=== PATIENT | female | born 1990 | race African-American/Black ===

== ENCOUNTER 2018-07-06 11:05 | Emergency (ER) | payer OTHER ==
[~2018-07-06] VITALS: Ht 160 cm; Wt 86.4 kg
[2018-07-06 11:09] VITALS: BP 148/53; Ht 160 cm; Wt 86.4 kg
[2018-07-06 11:29] LABS: BASOPHILS 0.5 % (0-2); EOSINOPHILS 1.1 % (0-7); HEMATOCRIT 39.9 % (36.0-48.0); HEMOGLOBIN 13.8 g/dL (12-16); LYMPHOCYTES 22.4 % (15-50); MCH 31.9 pg (26.0-34.0); MCHC 34.6 g/dL (31.0-37.0); MCV 92.1 fL (80.0-100.0); MEAN PLATELET VOLUME 12.8 fL (7.4-10.4); MONOCYTES 5.1 % (2-11); NEUTROPHILS 70.9 % (40-80); PLATELET COUNT 74 10x3/uL (130-400); RBC 4.33 10x6/uL (4.00-5.40); RDW 15.9 % (11.5-14.5); WBC 3.7 10x3/uL (4.8-10.8)
[2018-07-06 11:42] LABS: HCG URINE NEGATIVE (NEGATIVE)
[2018-07-06 11:43] LABS: ALBUMIN 3.7 g/dL (3.4-5.0); ALKALINE PHOSPHATASE 274 U/L (46-116); ALT (SGPT) 145 U/L (10-68); BILIRUBIN - TOTAL 3.53 mg/dL (0.2-1.3); CALC OSMOLALITY 269 mosm/kg (275-300); CALCIUM 8.8 mg/dL (8.5-10.1); CARBON DIOXIDE 25.8 mmol/L (21.0-32.0); CHLORIDE - SERUM 97 mmol/L (98-107); CREATININE - SERUM 0.5 mg/dL (0.6-1.3); GLUCOSE 100 mg/dL (74-106); MAGNESIUM - SERUM 1.4 mg/dL (1.8-2.4); POTASSIUM - SERUM 3.7 mmol/L (3.5-5.1); PROTEIN - SERUM 8.5 g/dL (6.4-8.2); SODIUM 136 mmol/L (136-145); UREA NITROGEN 6 mg/dL (7-18); eGFR NON AFRICAN AMERICAN > 90 mL/min (90-120)
[2018-07-06 11:48] LABS: UDS - AMPHET NEGATIVE QUAL (NEGATIVE); UDS - BARB NEGATIVE QUAL (NEGATIVE); UDS - BENZO NEGATIVE QUAL (NEGATIVE); UDS - COCAINE NEGATIVE QUAL (NEGATIVE); UDS - OPIATE NEGATIVE QUAL (NEGATIVE); UDS - PCP NEGATIVE QUAL (NEGATIVE); UDS - THC POSITIVE QUAL (NEGATIVE)
[2018-07-06 11:53] LABS: APPEARANCE HAZY (CLEAR); BILIRUBIN NEGATIVE (NEGATIVE); COLOR DK YELLOW (YELLOW); GLUCOSE NEGATIVE (NEGATIVE); KETONE NEGATIVE (NEGATIVE); NITRITE POSITIVE (NEGATIVE); PROTEIN NEGATIVE (NEGATIVE); SPECIFIC GRAVITY 1.005 (1.005-1.020)
[2018-07-06 11:54] LABS: RED CELLS - URINE OCC /hpf (0-5); WHITE CELLS - URINE OCC /hpf (0-5)
[2018-07-06 11:55] LABS: BACTERIA MANY /hpf (NONE SEEN); MUCUS <1+ /lpf (NONE SEEN)
[2018-07-06 12:12] LABS: PLATELET ESTIMATE DECREASED
== END 2018-07-06 13:50 | disposition left against medical advice (07) ==
LOC: D.ER 11:05
PROVIDERS: Emergency Medicine
DX: F10.239 Alcohol dependence with withdrawal, unspecified (principal)

== ENCOUNTER 2020-02-20 14:31 | Inpatient (IN) | payer MEDICAID ==
[~2020-02-20] VITALS: Ht 160 cm; Wt 107.4 kg
[2020-02-20 15:00] VITALS: BP 127/59
[2020-02-20 15:26] LABS: UDS - AMPHET NEGATIVE QUAL (NEGATIVE); UDS - BARB NEGATIVE QUAL (NEGATIVE); UDS - BENZO NEGATIVE QUAL (NEGATIVE); UDS - COCAINE NEGATIVE QUAL (NEGATIVE); UDS - OPIATE NEGATIVE QUAL (NEGATIVE); UDS - PCP NEGATIVE QUAL (NEGATIVE); UDS - THC NEGATIVE QUAL (NEGATIVE)
[2020-02-20 15:30] LABS: BILIRUBIN 1+ (NEGATIVE); GLUCOSE NEGATIVE (NEGATIVE); KETONE NEGATIVE (NEGATIVE); NITRITE NEGATIVE (NEGATIVE); UROBILINOGEN NORMAL (NORMAL)
[2020-02-20 15:31] LABS: RED CELLS - URINE OCC /hpf (0-5); WHITE CELLS - URINE 0-5 /hpf (NEGATIVE)
[2020-02-20 15:32] LABS: BACTERIA MODERATE /hpf (NEGATIVE); EPITHELIAL CELLS 0-5 /hpf (0-5)
[2020-02-20 15:37] LABS: HEMATOCRIT 37.5 % (36.0-48.0); HEMOGLOBIN 12.5 g/dL (12-16); LYMPHOCYTES 13.9 % (15-50); MCH 34.6 pg (26.0-34.0); MCHC 33.3 g/dL (31.0-37.0); MCV 103.9 fL (80.0-100.0); MEAN PLATELET VOLUME 11.6 fL (7.4-10.4); NEUTROPHILS 77.7 % (40-80); RBC 3.61 10x6/uL (4.00-5.40); RDW 19.4 % (11.5-14.5); WBC 5.3 10x3/uL (4.8-10.8)
[2020-02-20 15:40] LABS: HCG SERUM NEGATIVE (NEGATIVE)
[2020-02-20 15:41] LABS: CALC OSMOLALITY 265 mosm/kg (275-300); CALCIUM 7.2 mg/dL (8.5-10.1); CARBON DIOXIDE 26.7 mmol/L (21.0-32.0); CHLORIDE - SERUM 96 mmol/L (98-107); CREATININE - SERUM 0.6 mg/dL (0.6-1.3); GLUCOSE 122 mg/dL (74-106); SODIUM 134 mmol/L (136-145); UREA NITROGEN 4 mg/dL (7-18); eGFR NON AFRICAN AMERICAN > 90 mL/min (90-120)
[2020-02-20 15:54] LABS: ALBUMIN 2.5 g/dL (3.4-5.0); ALKALINE PHOSPHATASE 440 U/L (30-120); ALT (SGPT) 66 U/L (10-68); AMYLASE - SERUM 47 U/L (25-115); BILIRUBIN - TOTAL 12.67 mg/dL (0.2-1.3); LIPASE 294 U/L (73-393); MAGNESIUM - SERUM 1.6 mg/dL (1.8-2.4); PROTEIN - SERUM 7.4 g/dL (6.4-8.2)
[2020-02-20 16:00] LABS: PLATELET COUNT 51 10x3/uL (130-400)
[2020-02-20 16:11] LABS: INR 1.28 (0.85-1.17); PLATELET ESTIMATE DECREASED; PROTIME 15.9 SECONDS (11.6-15.0)
[2020-02-20 17:00] VITALS: BP 127/74
[2020-02-20 18:00] VITALS: BP 113/51
[2020-02-20 20:35] VITALS: BP 117/63
[2020-02-21 06:55] LABS: HEMATOCRIT 33.8 % (36.0-48.0); HEMOGLOBIN 11.4 g/dL (12-16); LYMPHOCYTES 18.8 % (15-50); MCH 35.5 pg (26.0-34.0); MCHC 33.7 g/dL (31.0-37.0); MCV 105.3 fL (80.0-100.0); MEAN PLATELET VOLUME 11.5 fL (7.4-10.4); NEUTROPHILS 76.8 % (40-80); RBC 3.21 10x6/uL (4.00-5.40); RDW 19.3 % (11.5-14.5)
[2020-02-21 07:09] LABS: WBC 3.1 10x3/uL (4.8-10.8)
[2020-02-21 07:10] LABS: PLATELET COUNT 38 10x3/uL (130-400)
[2020-02-21 07:12] LABS: ALBUMIN 2.2 g/dL (3.4-5.0); ALKALINE PHOSPHATASE 403 U/L (30-120); ALT (SGPT) 58 U/L (10-68); BILIRUBIN - TOTAL 11.38 mg/dL (0.2-1.3); CALC OSMOLALITY 270 mosm/kg (275-300); CALCIUM 7.1 mg/dL (8.5-10.1); CHLORIDE - SERUM 100 mmol/L (98-107); CHOL - HDL RATIO 23.4 ratio (2.3-4.1); CHOLESTEROL, TOTAL 327 mg/dL (0-200); GLUCOSE 105 mg/dL (74-106); HDL CHOLESTEROL 14 mg/dL (32-96); LDL CHOLESTEROL 260 mg/dL (0-100); LDL-HDL RATIO 18.6 ratio (1.5-3.5); LIPASE 311 U/L (73-393); MAGNESIUM - SERUM 1.7 mg/dL (1.8-2.4); POTASSIUM - SERUM 3.1 mmol/L (3.5-5.1); PROTEIN - SERUM 6.5 g/dL (6.4-8.2); SODIUM 137 mmol/L (136-145); TRIGLYCERIDE 269 mg/dL (30-200); UREA NITROGEN 4 mg/dL (7-18)
[2020-02-21 07:15] LABS: CREATININE - SERUM 0.4 mg/dL (0.6-1.3); eGFR NON AFRICAN AMERICAN > 90 mL/min (90-120)
--- NOTE | 2020-02-21 07:22 | NUR ---
AM ROUNDING DONE WITH PATIENT ON CELL PHONE LAYING ON BACK. ON HEART MONITOR SHOWING SR, HR 108. ROOM AIR. RIGHT HAND PIV SALINE LOCK. LAB CALLED WITH PLT OF 38. ON EP K+ 3.1, MAG 1.7. WILL COVER WITH PROTOCOL. C/O BACK PAIN, STATES THAT SHE FELL AT [place]. I ASKED THAT WHEN SHE SEES THE ODOCTOR TO PLEASE LET HIM KNOW OF THIS SHE DID NOT IN THE ED. STATES TO UNDERSTANDING.
--- NOTE | 2020-02-21 08:06 | NUR ---
ORAL POTASSIUM AND MAG GIVEN PER PROTOCOL.
[2020-02-21 09:00] VITALS: BP 133/77
[2020-02-21 09:12] LABS: HEPATITIS C ANTIBODY 0.2 S/CO RAT (0.0-0.9)
[2020-02-21 11:00] VITALS: BP 124/66
--- NOTE | 2020-02-21 11:10 | NUR ---
TEMP IS 100.1 ORAL. PAGE INTO DIN[facility]A JOYA APN FOR TYLENOL ORDER. AWAITING CALL BACK.
--- NOTE | 2020-02-21 11:28 | NUR ---
DINORA JOYA APN TO CALL BACK WITH NEW ORDERS.
--- NOTE | 2020-02-21 12:26 | NUR ---
POTASSIUM RE-DRAW RESULT IS 3.0. WILL COVER WITH ADDIONTIAL POTASSIUM.
[2020-02-21 15:00] VITALS: BP 131/65
--- NOTE | 2020-02-21 17:05 | NUR ---
POTASSIUM IS 3.5. COVERED PER PROTOCOL.
--- NOTE | 2020-02-21 19:57 | NUR ---
REPORT RECEIVED AN ROUNDING COMPLETE. PATIENT LAYING IN BED ON STOMACH SNORING. NO DISTRESS NOTED. PATIENT WOKE EASILY AND STATED THAT SHE IS EXTRA TIRED AND WOULD LIKE TO SLEEP PLEASE. NO DISTRESS NOTED. RIGHT HAND PIV THAT IS SALINE LOCKED. CALL LIGHT WIHTIN REACH AND BED IN LOWEST LOCKED POSITION.
[2020-02-21 20:00] VITALS: BP 140/66
[2020-02-22] VITALS: BP 125/60
[2020-02-22 04:00] VITALS: BP 141/65
[2020-02-22 05:32] LABS: ALBUMIN 2.1 g/dL (3.4-5.0); ALKALINE PHOSPHATASE 395 U/L (30-120); ALT (SGPT) 56 U/L (10-68); BILIRUBIN - TOTAL 14.31 mg/dL (0.2-1.3); CALC OSMOLALITY 266 mosm/kg (275-300); CALCIUM 7.5 mg/dL (8.5-10.1); CARBON DIOXIDE 26.9 mmol/L (21.0-32.0); CHLORIDE - SERUM 100 mmol/L (98-107); CREATININE - SERUM 0.5 mg/dL (0.6-1.3); GLUCOSE 101 mg/dL (74-106); MAGNESIUM - SERUM 1.5 mg/dL (1.8-2.4); POTASSIUM - SERUM 3.4 mmol/L (3.5-5.1); PROTEIN - SERUM 6.4 g/dL (6.4-8.2); SODIUM 135 mmol/L (136-145); UREA NITROGEN 3 mg/dL (7-18); eGFR NON AFRICAN AMERICAN > 90 mL/min (90-120)
[2020-02-22 05:39] LABS: HEMATOCRIT 34.5 % (36.0-48.0); HEMOGLOBIN 11.4 g/dL (12-16); LYMPHOCYTES 17.9 % (15-50); MCH 35.3 pg (26.0-34.0); MCV 106.8 fL (80.0-100.0); NEUTROPHILS 75.1 % (40-80); RBC 3.23 10x6/uL (4.00-5.40); RDW 19.3 % (11.5-14.5)
[2020-02-22 05:44] LABS: PLATELET COUNT 33 10x3/uL (130-400)
[2020-02-22 06:20] LABS: PHOSPHOROUS 1.5 mg/dL (2.5-4.9)
[2020-02-22 08:30] VITALS: BP 126/63
--- NOTE | 2020-02-22 09:59 | NUR ---
PT STATES SHE SLIIPED DOWN [facility] AT [facility]RIENDS HOUSE AND IS WANTING BACK XR. CALLED AND STATED THIS TO BALBINA BENTON AND HE STATES HE WILL LOOK AT CHART AND THAT HE MAY NOT ORDER FILM BUT WILL MOST LIKELY GET SOMETHING STRONGER FOR PAIN OTHER THAN TYLENOL. I VEBRALIZED UNDERSTANDING.
[2020-02-22 10:19] VITALS: Ht 160 cm; Wt 107.4 kg
[2020-02-22 11:08] LABS: PLATELET ESTIMATE DECREASED
[2020-02-22 12:00] VITALS: BP 143/76
--- NOTE | 2020-02-22 13:14 | NUR ---
PT STATES SHE FELL IN THE SHOWER AND HURT HER BACK MORE AND HIT HER HEAD. STATED THIS TO DR. SOUTH AND HE STATES TO ORDER A BACK XR CERVICAL THORACIC AND LUMBAR SPINE AND A CT HEAD WITHOUT CONTRAST. I VERBALIZED UNDERSTANDING.
--- NOTE | 2020-02-22 13:23 | NUR ---
PT STATES SHE FELL IN THE SHOWER AND HURT HER BACK MORE AND HIT HER HEAD. THIS WAS AN UNWITNESSED FALL. NON SKID SOCKS PLACED ON PT. BED ALARM TURNED ON. AND STATED TO PT SHE HAS TO USE CALL LIGHT IF SHE NEEDS TO GET UP FROM NOW ON AND WE WILL HELP HER TO THE BATHROOM. PT VERBALIZED UNDERSTANDING. STATED THIS TO DR. SOUTH AND HE STATES TO ORDER A BACK XR CERVICAL THORACIC AND LUMBAR SPINE AND A CT HEAD WITHOUT CONTRAST. I VERBALIZED UNDERSTANDING.
--- NOTE | 2020-02-22 15:25 | NUR ---
PT LYING IN BED. EYES CLOSED. CHEST RISING AND FALLING. BED LOW. CL IN REACH. WILL CONTINUE TO MONITOR.
--- NOTE | 2020-02-22 15:50 | NUR ---
SPOKE WITH DINORA BENTON AND SHE STATES SHE LOOKED OVER XR AND PT DID NOT FX HER BACK SHE JUST HAS DEGENERATIVE CHANGES FROM ETOH. SHE ALSO STATES CT OF THE HEAD WAS CLEAR. I VERBALIZED UNDERSTANDING. I ASKED IF PT WILL NEED CALCIUM AND SHE STATES THAT IS SOMETHING HER PCP WILL DECIDE ON WHEN SHE FOLLOWS UP WITH HIM. I VERBALIZED UNDERSTANDING.
--- NOTE | 2020-02-22 18:22 | NUR ---
I have reviewed this patient and I concur with the Shift Assessment completed by the Licensed Practical Nurse today this shift.
--- NOTE | 2020-02-22 19:11 | NUR ---
RESTING WITH EYES CLOSED BED LOW AND LOCKED SRX2 AND BED ALARM IS IN PLACECALL LIGHT IS WITH IN REACH
[2020-02-22 20:00] VITALS: BP 111/49
--- NOTE | 2020-02-23 03:05 | NUR ---
I have reviewed this patient and I concur with the Shift Assessment completed by the Licensed Practical Nurse today this shift.
[2020-02-23 04:00] VITALS: BP 141/78
[2020-02-23 04:55] LABS: HEMATOCRIT 33.3 % (36.0-48.0); HEMOGLOBIN 11.1 g/dL (12-16); LYMPHOCYTES 17.8 % (15-50); MCH 35.9 pg (26.0-34.0); MCHC 33.3 g/dL (31.0-37.0); MCV 107.8 fL (80.0-100.0); MEAN PLATELET VOLUME 12.2 fL (7.4-10.4); NEUTROPHILS 72.6 % (40-80); RBC 3.09 10x6/uL (4.00-5.40); WBC 3.3 10x3/uL (4.8-10.8)
[2020-02-23 05:02] LABS: PLATELET COUNT 41 10x3/uL (130-400)
[2020-02-23 05:28] LABS: ALKALINE PHOSPHATASE 361 U/L (30-120); ALT (SGPT) 46 U/L (10-68); BILIRUBIN - TOTAL 16.81 mg/dL (0.2-1.3); CALCIUM 7.5 mg/dL (8.5-10.1); CARBON DIOXIDE 24.8 mmol/L (21.0-32.0); CHLORIDE - SERUM 100 mmol/L (98-107); CREATININE - SERUM 0.4 mg/dL (0.6-1.3); GLUCOSE 85 mg/dL (74-106); MAGNESIUM - SERUM 1.5 mg/dL (1.8-2.4); POTASSIUM - SERUM 3.8 mmol/L (3.5-5.1); SODIUM 134 mmol/L (136-145); eGFR NON AFRICAN AMERICAN > 90 mL/min (90-120)
[2020-02-23 05:30] LABS: CALC OSMOLALITY 264 mosm/kg (275-300); UREA NITROGEN 6 mg/dL (7-18)
[2020-02-23 08:00] VITALS: BP 125/75
--- NOTE | 2020-02-23 12:22 | MORECARE ---
CASE MANAGEMENT DISCHARGE SUMMARY PATIENT: STEFANO XIONG UNIT: [id number] ADM DATE: 02/20/20 AGE: 29 : 88 SEX: F ROOM/BED: D.2107 AUTHOR: THOMPSON,DOC PHYSICIAN: REFERRING PHYSICIAN: SANTI SOUTH DO DATE OF SERVICE: 02/23/20 Discharge Plan Patient Name: STEFANO XIONG Facility: [facility]:[place] : 1990 Planned Disposition: Home Anticipated Discharge Date: 02/23/20 Discharge Date: Expected LOS: 3 Initial Reviewer: [email or web address] Initial Review Date: 02/20/2020 Generated: 02/23/20 1:21 pm DCP- Discharge Planning Updated by [email or web address]: Lawanda Shea on 02/22/20 2:[address] 98.4, 116, 20, 140/72. PLT 51-33, Alcohol 509, Chief Complaint Narrative worried about alcohol withdrawal, trying to stop drinking Objective Data History of Present Illness: PCP: none 29yo wf presented to the ER with concerns that she is going to stop drinking and worried she will have withdrawals. Is a heavy drinker, has drank on an almost daily basis for the past 15 years. Has had seizures in the past when she has quit drinking for any length of time. Last time she drank was earlier today. ETOH level of 509. States she would sincerely like to quit drinking now. Would like assistance with placement at an addicition treatment facility. Platelet count of 51. INR 1.28. AST 482. Tbil 12. Pt obviously still intoxicated at present. count of 51. INR States she has been told in the past that she had cirrhosis. Noted icterus and facial jaundice. Liver US pending. Admit Inpatient: Protonix 40 mg IV QD, Zofran 4 mg IV Q4HP (rec'd X4), Ativan 1 mg IV Q8HP, K-Phos 2 pkt PRN, K-DUR 40 meq PRN (X4), Banana Bag X1 IV 1,015 cc @125 ccH, Mag OX 400 mg oral PRN (X4), Librium 25 mg oral tid (X6). US ABD: IMPRESSION: 1. Enlarged liver with increased echogenicity, coarsened echotexture, and lobular contours. Findings are suggestive of fibrofatty infiltration and possible cirrhosis. 2. Hepatofugal portal venous flow in keeping with portal hypertension. No ascites seen. 3. Gallbladder sludge and stones without wall thickening 4. Nonvisualization of the common bile duct. DCPIA - Discharge Planning Initial Assessment Updated by [email or web address]: Lawanda Shea on 02/23/20 12:17 pm * Is the patient Alert and Oriented? Yes * How many steps to enter\exit or inside your home? * PCP Dr. Jacobs, NLR * Pharmacy [facility] * Preadmission Environment Home with Family * ADLs Independent * Other Equipment NA * List name and contact numbers for known caregivers / representatives who currently or will assist patient after discharge: Paul Ramirez () [phone] * Community resources currently utilized None * Please name any agencies selected above. Information provided for: [facility] * Additional services required to return to the preadmission environment? Yes * Can the patient safely return to the preadmission environment? No * Has this patient been hospitalized within the prior 30 days at any hospital? No Patient Name: STEFANO XIONG Page [id number] at 1222 All edits/amendments must be made on the electronic document DICTATION DATE: 02/23/20 1221 SHIPPING AND RECEIVING WEIGHER: PARVIN 02/23/20 1221 RPT#: [id number] DC DATE: STATUS: ADM IN [facility] [address] [place] [address] END OF REPORT
[2020-02-23] MEDS ORDERED: ATIVAN1 MG PO (12:40)
--- NOTE | 2020-02-23 13:25 | NUR ---
MALCOLM RN GAVE PT DISCHARGE INSTRUCTIONS AND ATIVAN SCRIPT AND EXPLAINED TO PT DISCHARGE INSTRUCTIONS AND DC'D TELEMETRY AND RIGHT HAND IV WITH CATH INTACT. PT SIGNED CHART COPY AND CALLED RIDE.
--- NOTE | 2020-02-23 13:30 | MORECARE ---
CASE MANAGEMENT DISCHARGE SUMMARY PATIENT: STEFANO XIONG UNIT: [id number] ADM DATE: 02/20/20 AGE: 29 : 88 SEX: F ROOM/BED: D.2107 AUTHOR: THOMPSON,DOC PHYSICIAN: REFERRING PHYSICIAN: SANTI SOUTH DO DATE OF SERVICE: 02/23/20 Discharge Plan Patient Name: STEFANO XIONG Facility: [facility]:[place] : 1990 Planned Disposition: Home Anticipated Discharge Date: 02/23/20 Discharge Date: Expected LOS: 3 Initial Reviewer: [email or web address] Initial Review Date: 02/20/2020 Generated: 02/23/20 2:29 pm DCP- Discharge Planning Updated by [email or web address]: Lawanda Shea on 02/22/20 2:[address] 98.4, 116, 20, 140/72. PLT 51-33, Alcohol 509, Chief Complaint Narrative worried about alcohol withdrawal, trying to stop drinking Objective Data History of Present Illness: PCP: none 29yo wf presented to the ER with concerns that she is going to stop drinking and worried she will have withdrawals. Is a heavy drinker, has drank on an almost daily basis for the past 15 years. Has had seizures in the past when she has quit drinking for any length of time. Last time she drank was earlier today. ETOH level of 509. States she would sincerely like to quit drinking now. Would like assistance with placement at an addicition treatment facility. Platelet count of 51. INR 1.28. AST 482. Tbil 12. Pt obviously still intoxicated at present. count of 51. INR States she has been told in the past that she had cirrhosis. Noted icterus and facial jaundice. Liver US pending. Admit Inpatient: Protonix 40 mg IV QD, Zofran 4 mg IV Q4HP (rec'd X4), Ativan 1 mg IV Q8HP, K-Phos 2 pkt PRN, K-DUR 40 meq PRN (X4), Banana Bag X1 IV 1,015 cc @125 ccH, Mag OX 400 mg oral PRN (X4), Librium 25 mg oral tid (X6). US ABD: IMPRESSION: 1. Enlarged liver with increased echogenicity, coarsened echotexture, and lobular contours. Findings are suggestive of fibrofatty infiltration and possible cirrhosis. 2. Hepatofugal portal venous flow in keeping with portal hypertension. No ascites seen. 3. Gallbladder sludge and stones without wall thickening 4. Nonvisualization of the common bile duct. DCPIA - Discharge Planning Initial Assessment Updated by [id number]: Lawanda Shea on 02/23/20 12:17 pm * Is the patient Alert and Oriented? Yes * How many steps to enter\exit or inside your home? * PCP Dr. Jacobs, NLR * Pharmacy [facility] * Preadmission Environment Home with Family * ADLs Independent * Other Equipment NA * List name and contact numbers for known caregivers / representatives who currently or will assist patient after discharge: Paul Ramirez () [phone] * Community resources currently utilized None * Please name any agencies selected above. Information provided for: [facility] * Additional services required to return to the preadmission environment? Yes * Can the patient safely return to the preadmission environment? No * Has this patient been hospitalized within the prior 30 days at any hospital? No Last DP export: 02/23/20 11:22 a Patient Name: STEFANO XIONG Page 90702 at 1330 All edits/amendments must be made on the electronic document DICTATION DATE: 02/23/201328 INDUSTRIAL AUTOMATION SPECIALIST: PARVIN 02/23/20 1329 RPT#: [id number] DC DATE: STATUS: ADM IN [facility] [address] [place] [address] END OF REPORT
--- NOTE | 2020-02-23 13:47 | NUR ---
PT TAKEN OUT VIA WC BY CAN AND LEFT WITH ALL PERSONAL BELONGINGS WITH FRIEND IN THEIR PERSONAL VEHICLE.
--- NOTE | 2020-02-23 16:32 | MORECARE ---
CASE MANAGEMENT DISCHARGE SUMMARY PATIENT: STEFANO XIONG UNIT: [id number] ADM DATE: 02/20/20 AGE: 29 : 88 SEX: F ROOM/BED: D.2104 AUTHOR: THOMPSON,DOC PHYSICIAN: REFERRING PHYSICIAN: SANTI SOUTH DO DATE OF SERVICE: 02/23/20 Discharge Plan Patient Name: STEFANO XIONG Facility: [facility]:[place] : 1990 Planned Disposition: Home Anticipated Discharge Date: 02/23/20 Discharge Date: 02/23/2020 Expected LOS: 3 Initial Reviewer: [email or web address] Initial Review Date: 02/20/2020 Generated: 02/23/20 5:32 pm DCP- Discharge Planning Updated by [email or web address]: Lawanda Shea on 02/22/20 2:[address] 98.4, 116, 20, 140/72. PLT 51-33, Alcohol 509, Chief Complaint Narrative worried about alcohol withdrawal, trying to stop drinking Objective Data History of Present Illness: PCP: none 29yo wf presented to the ER with concerns that she is going to stop drinking and worried she will have withdrawals. Is a heavy drinker, has drank on an almost daily basis for the past 15 years. Has had seizures in the past when she has quit drinking for any length of time. Last time she drank was earlier today. ETOH level of 509. States she would sincerely like to quit drinking now. Would like assistance with placement at an addicition treatment facility. Platelet count of 51. INR 1.28. AST 482. Tbil 12. Pt obviously still intoxicated at present. count of 51. INR States she has been told in the past that she had cirrhosis. Noted icterus and facial jaundice. Liver US pending. Admit Inpatient: Protonix 40 mg IV QD, Zofran 4 mg IV Q4HP (rec'd X4), Ativan 1 mg IV Q8HP, K-Phos 2 pkt PRN, K-DUR 40 meq PRN (X4), Banana Bag X1 IV 1,015 cc @125 ccH, Mag OX 400 mg oral PRN (X4), Librium 25 mg oral tid (X6). US ABD: IMPRESSION: 1. Enlarged liver with increased echogenicity, coarsened echotexture, and lobular contours. Findings are suggestive of fibrofatty infiltration and possible cirrhosis. 2. Hepatofugal portal venous flow in keeping with portal hypertension. No ascites seen. 3. Gallbladder sludge and stones without wall thickening 4. Nonvisualization of the common bile duct. DCPIA - Discharge Planning Initial Assessment Updated by [id number]: Lawanda Shea on 02/23/20 12:17 pm * Is the patient Alert and Oriented? Yes * How many steps to enter\exit or inside your home? * PCP Dr. Jacobs, NLR * Pharmacy [facility] * Preadmission Environment Home with Family * ADLs Independent * Other Equipment NA * List name and contact numbers for known caregivers / representatives who currently or will assist patient after discharge: Paul Ramirez () [phone] * Community resources currently utilized None * Please name any agencies selected above. Information provided for: [facility] * Additional services required to return to the preadmission environment? Yes * Can the patient safely return to the preadmission environment? No * Has this patient been hospitalized within the prior 30 days at any hospital? No Last DP export: 02/23/20 12:30 p Patient Name: STEFANO XIONG Page 23271 at 1632 All edits/amendments must be made on the electronic document DICTATION DATE: 02/23/20 163 COST ENGINEER: PARVIN 02/23/20 163 RPT#: [id number] DC DATE:02/23/20 STATUS: DIS IN [facility] [address] [place] [address] END OF REPORT
== END 2020-02-23 13:50 | disposition home or self-care (01) | DRG 897 ==
LOC: D.ER 14:31 → D.M2 16:19 → D.EDHOLD 16:19 → D.M2 16:20
PROVIDERS: Family Medicine; ADMIT Family Medicine; ATTEND Family Medicine
DX: F10.229 Alcohol dependence with intoxication, unspecified (principal); K70.30 Alcoholic cirrhosis of liver without ascites; Y90.8 Blood alcohol level of 240 mg/100 ml or more; D69.6 Thrombocytopenia, unspecified; E87.6 Hypokalemia

== ENCOUNTER 2020-10-28 21:03 | Emergency (ER) | payer BC ==
[~2020-10-28] VITALS: Ht 160 cm; Wt 95.3 kg
[~2020-10-28 21:03] MED LIST: ATIVAN1 MG PO
[2020-10-28 21:09] VITALS: Ht 160 cm; Wt 95.3 kg
[2020-10-28 21:19] LABS: BASOPHILS 0.2 % (0-2); EOSINOPHILS 1.7 % (0-7); HEMATOCRIT 36.7 % (36.0-48.0); HEMOGLOBIN 12.5 g/dL (12-16); IMMATURE GRANULOCYTES 0.2 % (0-5); LYMPHOCYTE ABS# 1.65 10x3/uL (1.18-3.74); LYMPHOCYTES 35.6 % (15-50); MCH 33.2 pg (26.0-34.0); MCHC 34.1 g/dL (31.0-37.0); MCV 97.6 fL (80.0-100.0); MEAN PLATELET VOLUME 11.6 fL (7.4-10.4); MONOCYTES 10.6 % (2-11); NEUTROPHIL ABS# 2.39 10x3/uL (1.56-6.13); NEUTROPHILS 51.7 % (40-80); RBC 3.76 10x6/uL (4.00-5.40); RDW 15.6 % (11.5-14.5); WBC 4.6 10x3/uL (4.8-10.8)
[2020-10-28 21:24] LABS: PLATELET COUNT 68 10x3/uL (130-400)
[2020-10-28 21:28] LABS: BILIRUBIN NEGATIVE (NEGATIVE); KETONE NEGATIVE (NEGATIVE); NITRITE NEGATIVE (NEGATIVE); UROBILINOGEN NORMAL mg/dL (< 2)
[2020-10-28 21:29] LABS: BACTERIA MODERATE HPF (NONE SEEN); HCG URINE NEGATIVE (NEGATIVE); SQUAMOUS EPITHELIAL 0-5 HPF (0-4)
[2020-10-28 21:33] LABS: CALC OSMOLALITY 284 mosm/kg (275-300); CARBON DIOXIDE 27.6 mmol/L (21.0-32.0); CHLORIDE - SERUM 105 mmol/L (98-107); CREATININE - SERUM 0.6 mg/dL (0.6-1.3); GLUCOSE 115 mg/dL (74-106); POTASSIUM - SERUM 3.4 mmol/L (3.5-5.1); SODIUM 144 mmol/L (136-145); UREA NITROGEN 4 mg/dL (7-18); eGFR NON AFRICAN AMERICAN > 90 mL/min (90-120)
[2020-10-28 21:36] LABS: UDS - AMPHET NEGATIVE QUAL (NEGATIVE); UDS - BARB NEGATIVE QUAL (NEGATIVE); UDS - BENZO NEGATIVE QUAL (NEGATIVE); UDS - COCAINE NEGATIVE QUAL (NEGATIVE); UDS - OPIATE NEGATIVE QUAL (NEGATIVE); UDS - PCP NEGATIVE QUAL (NEGATIVE); UDS - THC NEGATIVE QUAL (NEGATIVE)
[2020-10-28 21:46] LABS: ALBUMIN 2.9 g/dL (3.4-5.0); ALKALINE PHOSPHATASE 115 U/L (30-120); ALT (SGPT) 70 U/L (10-68); MAGNESIUM - SERUM 1.6 mg/dL (1.8-2.4); PROTEIN - SERUM 7.9 g/dL (6.4-8.2)
[2020-10-28 21:48] LABS: PLATELET ESTIMATE DECREASED
[2020-10-29] MEDS ORDERED: LIBRIUM25 MG PO (16:18)
[2020-10-29 16:38] VITALS: BP 143/79
== END 2020-10-29 16:39 | disposition home or self-care (01) ==
LOC: D.ER 21:03
PROVIDERS: Family Medicine
DX: F10.229 Alcohol dependence with intoxication, unspecified (principal); Y90.8 Blood alcohol level of 240 mg/100 ml or more

== ENCOUNTER 2021-01-14 13:32 | Emergency (ER) | payer BC ==
[~2021-01-14] VITALS: Ht 160 cm; Wt 100.0 kg
[~2021-01-14 13:32] MED LIST changes: +LIBRIUM25 MG PO
[2021-01-14 13:35] VITALS: Ht 160 cm; Wt 100.0 kg
[2021-01-14 18:24] VITALS: BP 111/62
[2021-01-15] MEDS ORDERED: TRAZODONE HCL50 MG PO (14:56)
[2021-01-15] MEDS ORDERED: GABAPENTIN100 MG PO (14:56)
[2021-01-15] MEDS ORDERED: LEXAPRO10 MG PO (14:56)
[2021-01-15] MEDS ORDERED: LIBRIUM25 MG PO (14:57)
[2021-01-15] MEDS ORDERED: CEFUROXIME500 MG PO (14:57)
[2021-01-15] MEDS ORDERED: FOLIC ACID1 MG PO (14:57)
[2021-01-15] MEDS ORDERED: MAG-OX 400 MG400 MG PO (14:58)
[2021-01-15] MEDS ORDERED: ATIVAN1 MG PO (14:58)
== END 2021-01-14 22:37 | disposition home or self-care (01) ==
LOC: D.ER 13:32
DX: S80.01XA Contusion of right knee, initial encounter (principal); F10.10 Alcohol abuse, uncomplicated; Y90.9 Presence of alcohol in blood, level not specified; W17.89XA Other fall from one level to another, initial encounter; Y93.9 Activity, unspecified; Y92.9 Unspecified place or not applicable; M54.9 Dorsalgia, unspecified

== ENCOUNTER 2021-01-15 14:24 | Inpatient (IN) | payer BC ==
[2021-01-15] VITALS (7 sets, daily range): BP systolic 108–146; BP diastolic 64–81; BMI 39.5
[~2021-01-15] VITALS: Ht 160 cm; Wt 101.2 kg
[2021-01-15] MEDS ORDERED: GABAPENTIN100 MG PO (14:56)
[2021-01-15] MEDS ORDERED: TRAZODONE HCL50 MG PO (14:56)
[2021-01-15] MEDS ORDERED: LEXAPRO10 MG PO (14:56)
[2021-01-15] MEDS ORDERED: FOLIC ACID1 MG PO (14:57)
[2021-01-15] MEDS ORDERED: CEFUROXIME500 MG PO (14:57)
[2021-01-15] MEDS ORDERED: LIBRIUM25 MG PO (14:57)
[2021-01-15] MEDS ORDERED: ATIVAN1 MG PO (14:58)
[2021-01-15] MEDS ORDERED: MAG-OX 400 MG400 MG PO (14:58)
[2021-01-15 15:11] LABS: BASOPHILS 0.4 % (0-2); EOSINOPHILS 0.1 % (0-7); HEMATOCRIT 27.2 % (36.0-48.0); LYMPHOCYTES 13.8 % (15-50); MCH 32.3 pg (26.0-34.0); MCHC 33.1 g/dL (31.0-37.0); MCV 97.4 fL (80.0-100.0); MEAN PLATELET VOLUME 9.4 fL (7.4-10.4); MONOCYTES 9.1 % (2-11); NEUTROPHILS 76.6 % (40-80); RBC 2.79 10x6/uL (4.00-5.40); RDW 21.8 % (11.5-14.5); WBC 2.1 10x3/uL (4.8-10.8)
[2021-01-15 15:14] LABS: PLATELET COUNT 33 10x3/uL (130-400)
[2021-01-15 15:15] LABS: PLATELET ESTIMATE DECREASED
[2021-01-15 15:24] LABS: CALC OSMOLALITY 269 mosm/kg (275-300); CALCIUM 7.6 mg/dL (8.5-10.1); CARBON DIOXIDE 26.5 mmol/L (21.0-32.0); CHLORIDE - SERUM 99 mmol/L (98-107); CREATININE - SERUM 0.5 mg/dL (0.6-1.3); GLUCOSE 103 mg/dL (74-106); POTASSIUM - SERUM 3.1 mmol/L (3.5-5.1); SODIUM 136 mmol/L (136-145); UREA NITROGEN 7 mg/dL (7-18); eGFR NON AFRICAN AMERICAN > 90 mL/min (90-120)
[2021-01-15 15:35] LABS: ALBUMIN 2.1 g/dL (3.4-5.0); ALKALINE PHOSPHATASE 114 U/L (30-120); ALT (SGPT) 49 U/L (10-68); AMYLASE - SERUM 50 U/L (25-115); BILIRUBIN - TOTAL 5.96 mg/dL (0.2-1.3); LIPASE 191 U/L (73-393); MAGNESIUM - SERUM 1.4 mg/dL (1.8-2.4); PROTEIN - SERUM 6.4 g/dL (6.4-8.2)
[2021-01-15 15:41] LABS: INR 2.44 (0.85-1.17); PROTIME 24.6 SECONDS (11.6-15.0)
--- NOTE | 2021-01-15 16:52 | NUR ---
DR. FLORES CONSULTED. REPORTED FEVER 101.1, HE ORDERS A 1 TIME DOSE OF TYLENOL.
--- NOTE | 2021-01-15 16:57 | NUR ---
PLATELETS [address] FLORES.
--- NOTE | 2021-01-15 17:45 | NUR ---
RECEIVED TO ICU AND PLACED SAFELY IN BED. TREMORS NOTED, BUT REPORTS SHE IS SO TIRED AND FALLS ASLEEP. TYLENOL GIVEN FOR FEVER. DR. FLORES COMES BY AND ORDERS STEROIDS. UP TO BSC SAFELY, BUT HAD 1 SMALL DIARRHEA ACCIDENT IN BED, NONE IN BSC. BACK TO BED SAFELY.
--- NOTE | 2021-01-15 18:27 | NUR ---
FOLLOW-UP TEMP AFTER TYLENOL 100.4 DOWN FROM 101.1.
[2021-01-16] VITALS (12 sets, daily range): BP systolic 123–154; BP diastolic 68–82; BMI 39.5
[2021-01-16 04:49] LABS: HEMOGLOBIN 9.1 g/dL (12-16); MEAN PLATELET VOLUME 10.5 fL (7.4-10.4)
[2021-01-16 04:51] LABS: HEMATOCRIT 27.2 % (36.0-48.0); MCHC 33.6 g/dL (31.0-37.0); MCV 98.1 fL (80.0-100.0); RBC 2.77 10x6/uL (4.00-5.40)
[2021-01-16 04:56] LABS: ALBUMIN 2.1 g/dL (3.4-5.0); ALKALINE PHOSPHATASE 117 U/L (30-120); ALT (SGPT) 48 U/L (10-68); BILIRUBIN - TOTAL 4.89 mg/dL (0.2-1.3); CALCIUM 7.2 mg/dL (8.5-10.1); CARBON DIOXIDE 30.1 mmol/L (21.0-32.0); CHLORIDE - SERUM 100 mmol/L (98-107); CREATININE - SERUM 0.5 mg/dL (0.6-1.3); GLUCOSE 112 mg/dL (74-106); PROTEIN - SERUM 6.4 g/dL (6.4-8.2); SODIUM 133 mmol/L (136-145); eGFR NON AFRICAN AMERICAN > 90 mL/min (90-120)
[2021-01-16 04:58] LABS: CALC OSMOLALITY 263 mosm/kg (275-300); POTASSIUM - SERUM 2.9 mmol/L (3.5-5.1); UREA NITROGEN 5 mg/dL (7-18)
[2021-01-16 05:02] LABS: PLATELET COUNT 31 10x3/uL (130-400); WBC 1.5 10x3/uL (4.8-10.8)
[2021-01-16 06:04] LABS: LYMPHOCYTES 20 % (15-50); NEUTROPHILS 63 % (40-80); PLATELET ESTIMATE DECREASED
[2021-01-16 10:13] LABS: HEPATITIS C ANTIBODY <0.1 S/CO RAT (0.0-0.9)
--- NOTE | 2021-01-16 12:43 | NUR ---
DR. HAZEL OFFICE CALLED FOR THE CONSULT.
--- NOTE | 2021-01-16 18:07 | NUR ---
NEW IV STARTED 22 CARMEN NEW IV RIGHT AC WAS PULLED OUT.
[2021-01-16 21:18] LABS: HCG URINE NEGATIVE (NEGATIVE)
[2021-01-16 21:25] LABS: UDS - AMPHET NEGATIVE QUAL (NEGATIVE); UDS - BARB NEGATIVE QUAL (NEGATIVE); UDS - BENZO POSITIVE QUAL (NEGATIVE); UDS - COCAINE NEGATIVE QUAL (NEGATIVE); UDS - OPIATE NEGATIVE QUAL (NEGATIVE); UDS - PCP NEGATIVE QUAL (NEGATIVE); UDS - THC NEGATIVE QUAL (NEGATIVE)
[2021-01-16 21:38] LABS: BILIRUBIN NEGATIVE (NEGATIVE); KETONE TRACE mg/dL (< 1+); NITRITE NEGATIVE (NEGATIVE); UROBILINOGEN NORMAL mg/dL (< 2)
[2021-01-16 21:44] LABS: AMORPHOUS SEDIMENT MODERATE LPF (<FEW); BACTERIA FEW HPF (<MOD); SQUAMOUS EPITHELIAL 0-5 HPF (0-4); WHITE CELLS - URINE 0-5 HPF (0-4)
--- NOTE | 2021-01-16 23:00 | NUR ---
PT ARRIVED TO THE FLOOR. ALERT WITH SOME CONFUSION. IV SITE LT UPPER ARM DRESSING CLEAN DRY AND INTACT NO SIGNS OF INFECTION OR INFULTRATION. IV FLUIDS RUNNING. TELE MONTIOR ON. OLD SCABS AND SORES ON KNEES AND LT ELBOW. SOME BRISING ON RT KNEE. BED ALARM TURNED ON FALL PRECAUTIONS IN PLACE. WILL CONTINUE TO COSELY MONITOR. CALL LIGHT IN REACH. BED RAILS UPX2.
[2021-01-17] VITALS: BP 129/78
--- NOTE | 2021-01-17 01:00 | NUR ---
UPON ARRIVING TO PT ROOM CALL LIGHT WAS ON. PT WAS ALREADY UP TO THE BSC BED ALRM GOING OFF. PT STATES SHE FELLOR OVER THE BSC AND HIT THE BACK OF HER HEAD ON THE WALL. NO PHYSICAL SIGNS OF INJURY. BSC NOT MOVED AT ALL FROM PREVIOUS PLACEMENT. CALLED HOUSE SUPREVISOR AND ONCALL FR DR RUTHERFORD. NO NEW ORDERS AT THIS TIME. TINA AND BED ALARM ON NOW WITH CAMERA IN PLACE TO WATCH PT T ALL TIMES. Q2HR LIONEL CHECKS. VITALS STABLE. WILL CONTINUE TO CLOSELY MONITOR.
[2021-01-17 04:00] VITALS: BP 120/40
--- NOTE | 2021-01-17 06:16 | NUR ---
I have reviewed this patient and I concur with the Shift Assessment completed by the Licensed Practical Nurse today this shift.
[2021-01-17 06:51] LABS: INR 2.64 (0.85-1.17); PROTIME 26.2 SECONDS (11.6-15.0)
[2021-01-17 07:03] LABS: EOSINOPHILS 1.5 % (0-7); HEMOGLOBIN 8.7 g/dL (12-16)
[2021-01-17 07:07] LABS: HEMATOCRIT 25.7 % (36.0-48.0); LYMPHOCYTES 28.6 % (15-50); MCH 33.2 pg (26.0-34.0); MCHC 33.8 g/dL (31.0-37.0); MCV 98.1 fL (80.0-100.0); MEAN PLATELET VOLUME 10.1 fL (7.4-10.4); MONOCYTES 8.1 % (2-11); NEUTROPHILS 60.8 % (40-80); RBC 2.62 10x6/uL (4.00-5.40)
[2021-01-17 07:10] VITALS: Ht 160 cm; Wt 101.2 kg
[2021-01-17 07:10] LABS: WBC 1.6 10x3/uL (4.8-10.8)
[2021-01-17 07:11] LABS: PLATELET COUNT 30 10x3/uL (130-400)
[2021-01-17 07:15] LABS: ALKALINE PHOSPHATASE 117 U/L (30-120); ALT (SGPT) 40 U/L (10-68); BILIRUBIN - TOTAL 4.33 mg/dL (0.2-1.3); CALC OSMOLALITY 265 mosm/kg (275-300); CALCIUM 7.7 mg/dL (8.5-10.1); CARBON DIOXIDE 25.6 mmol/L (21.0-32.0); CHLORIDE - SERUM 103 mmol/L (98-107); CREATININE - SERUM 0.6 mg/dL (0.6-1.3); GLUCOSE 87 mg/dL (74-106); PROTEIN - SERUM 6.2 g/dL (6.4-8.2); SODIUM 134 mmol/L (136-145); UREA NITROGEN 9 mg/dL (7-18); eGFR NON AFRICAN AMERICAN > 90 mL/min (90-120)
[2021-01-17 08:56] VITALS: BP 116/55
--- NOTE | 2021-01-17 09:03 | NUR ---
AAO UPON ENTERING. DISHEVELED LOOK, REPEATS QUESTIONS THAT WERE PREVIOUSLY ANSWERED. BUT TOOK MEDICATION WITH NO DIFFICULTIES. PRN ATIVAN FOR HEADACHE PER PATIENT. DENIES FURTHER NEEDS. BED IN LOWEST POSITION, BED RAILS X2, CALL LIGHT WITHIN REACH. WILL CONTINUE POC. ASSESSMENT PERFORMED AT THIS TIME.
[2021-01-17 12:46] VITALS: BP 129/66
--- NOTE | 2021-01-17 12:54 | NUR ---
HUNG MVI BAG, TOLERATING WELL. ADMINISTERED LACTULOSE. CHANGED LINENS. RESTING COMFORTABLY. DENIES FURTHER NEEDS. WILL CONTINUE POC.
--- NOTE | 2021-01-17 14:14 | NUR ---
ADMINISTERED MEDICATION, NO DIFFICULTIES. RESTING IN BED. DENIES ANY NEEDS AT THIS TIME. WILL CONTINUE POC.
--- NOTE | 2021-01-17 17:09 | NUR ---
REPLACED POTASSIUM PER PROTOCOL. RESTING IN BED. WILL CONTINUE POC.L
[2021-01-17 17:27] VITALS: BP 130/71
--- NOTE | 2021-01-17 22:15 | NUR ---
LEFT SHOULDER IV LEAKING. REMOVED IV CATHETER INTACT. 22G IV RESITED TO RIGHT FOREARM BY KENJI GRADY FIRST ATTEMPT. GAVE ATIVAN 1 MG FOR ANXIETY. NO OTHER NEEDS. TINA ALARM ON. WILL CONTINUE TO MONITOR.
--- NOTE | 2021-01-18 | NUR ---
BED ALARM SOUNDING. NURSE ENTERS ROOM TO FIND PT SITTING IN FLOOR WITH LOOSE STOOL ON FLOOR AND LEGS. PT DOESN'T APPEARED TO BE INJURED AND STATES SHE IS "NOT HURT." VITAL SIGNS STABLE. NOTIFIED LINING MARKER AND CHETAN HERNANDEZ. NO ANSWER ON FAMILY'S PHONE. MOVED PT CLOSER TO DESK. BED ALARM AND TINA ALARM ON. PT MONITORED FROM DESK VIA CAMERA. NO OTHER NEES. CALL LIGHT IN REACH.
--- NOTE | 2021-01-18 04:06 | NUR ---
I have reviewed this patient and I concur with the Shift Assessment completed by the Licensed Practical Nurse today this shift.
[2021-01-18 06:38] LABS: INR 2.78 (0.85-1.17); PROTIME 27.3 SECONDS (11.6-15.0)
[2021-01-18 06:40] LABS: HEMATOCRIT 25.6 % (36.0-48.0); HEMOGLOBIN 8.7 g/dL (12-16); MCH 33.6 pg (26.0-34.0); MCHC 33.8 g/dL (31.0-37.0); MCV 99.4 fL (80.0-100.0); MEAN PLATELET VOLUME 10.1 fL (7.4-10.4); RBC 2.58 10x6/uL (4.00-5.40); RDW 23.1 % (11.5-14.5)
[2021-01-18 06:50] LABS: PLATELET COUNT 40 10x3/uL (130-400); WBC 1.6 10x3/uL (4.8-10.8)
[2021-01-18 07:14] LABS: ALKALINE PHOSPHATASE 108 U/L (30-120); ALT (SGPT) 42 U/L (10-68); BILIRUBIN - TOTAL 4.25 mg/dL (0.2-1.3); CALCIUM 7.4 mg/dL (8.5-10.1); CARBON DIOXIDE 23.5 mmol/L (21.0-32.0); CHLORIDE - SERUM 106 mmol/L (98-107); CREATININE - SERUM 0.5 mg/dL (0.6-1.3); GLUCOSE 82 mg/dL (74-106); SODIUM 138 mmol/L (136-145); eGFR NON AFRICAN AMERICAN > 90 mL/min (90-120)
[2021-01-18 07:35] LABS: LYMPHOCYTES 21 % (15-50); NEUTROPHILS 79 % (40-80)
[2021-01-18 07:36] LABS: PLATELET ESTIMATE DECREASED
[2021-01-18 08:00] LABS: CALC OSMOLALITY 271 mosm/kg (275-300); POTASSIUM - SERUM 2.9 mmol/L (3.5-5.1); UREA NITROGEN 5 mg/dL (7-18)
[2021-01-18 09:14] VITALS: BP 107/50
[2021-01-18 13:37] VITALS: BP 112/52
[2021-01-18 17:21] VITALS: BP 121/64
[2021-01-18 20:00] VITALS: BP 123/54
--- NOTE | 2021-01-19 02:28 | NUR ---
I have reviewed this patient and I concur with the Shift Assessment completed by the Licensed Practical Nurse today this shift.
[2021-01-19 05:45] LABS: ALKALINE PHOSPHATASE 109 U/L (30-120); ALT (SGPT) 44 U/L (10-68); BILIRUBIN - TOTAL 3.93 mg/dL (0.2-1.3); CALCIUM 7.5 mg/dL (8.5-10.1); CARBON DIOXIDE 23.8 mmol/L (21.0-32.0); CHLORIDE - SERUM 106 mmol/L (98-107); CREATININE - SERUM 0.6 mg/dL (0.6-1.3); GLUCOSE 111 mg/dL (74-106); PROTEIN - SERUM 6.1 g/dL (6.4-8.2); SODIUM 137 mmol/L (136-145); eGFR NON AFRICAN AMERICAN > 90 mL/min (90-120)
[2021-01-19 05:46] LABS: CALC OSMOLALITY 271 mosm/kg (275-300); POTASSIUM - SERUM 3.5 mmol/L (3.5-5.1); UREA NITROGEN 3 mg/dL (7-18)
[2021-01-19 06:11] LABS: BASOPHILS 0.6 % (0-2); EOSINOPHILS 0.6 % (0-7); HEMATOCRIT 27.6 % (36.0-48.0); LYMPHOCYTE ABS# 0.36 10x3/uL (1.18-3.74); LYMPHOCYTES 20.8 % (15-50); MCH 32.8 pg (26.0-34.0); MCHC 32.6 g/dL (31.0-37.0); MCV 100.7 fL (80.0-100.0); MONOCYTES 12.1 % (2-11); NEUTROPHIL ABS# 1.14 10x3/uL (1.56-6.13); NEUTROPHILS 65.9 % (40-80); RBC 2.74 10x6/uL (4.00-5.40); RDW 21.5 % (11.5-14.5)
[2021-01-19 06:14] LABS: PLATELET COUNT 32 10x3/uL (130-400); WBC 1.7 10x3/uL (4.8-10.8)
[2021-01-19 06:33] VITALS: BP 94/47
[2021-01-19 07:42] LABS: INR 2.63 (0.85-1.17); PROTIME 26.1 SECONDS (11.6-15.0)
[2021-01-19 12:13] VITALS: BP 108/57
[2021-01-19 18:10] VITALS: BP 123/73
[2021-01-19 20:00] VITALS: BP 117/64
[2021-01-20] VITALS: BP 125/66
--- NOTE | 2021-01-20 03:00 | NUR ---
I have reviewed this patient and I concur with the Shift Assessment completed by the Licensed Practical Nurse today this shift.
[2021-01-20 04:00] VITALS: BP 99/57
[2021-01-20 07:09] LABS: INR 2.68 (0.85-1.17); PROTIME 26.5 SECONDS (11.6-15.0)
[2021-01-20 07:10] LABS: HEMOGLOBIN 9.7 g/dL (12-16); RBC 2.81 10x6/uL (4.00-5.40)
[2021-01-20 07:18] LABS: BASOPHILS 1.2 % (0-2); EOSINOPHILS 1.7 % (0-7); HEMATOCRIT 28.8 % (36.0-48.0); LYMPHOCYTES 22.6 % (15-50); MCH 34.4 pg (26.0-34.0); MCHC 33.5 g/dL (31.0-37.0); MCV 102.5 fL (80.0-100.0); MEAN PLATELET VOLUME 9.9 fL (7.4-10.4); MONOCYTES 14.3 % (2-11); NEUTROPHILS 60.2 % (40-80); RDW 23.8 % (11.5-14.5)
[2021-01-20 07:27] LABS: WBC 1.8 10x3/uL (4.8-10.8)
[2021-01-20 07:28] LABS: PLATELET COUNT 42 10x3/uL (130-400)
[2021-01-20 07:31] LABS: ALBUMIN 2.1 g/dL (3.4-5.0); ALKALINE PHOSPHATASE 113 U/L (30-120); ALT (SGPT) 46 U/L (10-68); BILIRUBIN - TOTAL 4.33 mg/dL (0.2-1.3); CALC OSMOLALITY 274 mosm/kg (275-300); CALCIUM 7.7 mg/dL (8.5-10.1); CARBON DIOXIDE 24.1 mmol/L (21.0-32.0); CHLORIDE - SERUM 108 mmol/L (98-107); CREATININE - SERUM 0.7 mg/dL (0.6-1.3); GLUCOSE 96 mg/dL (74-106); POTASSIUM - SERUM 3.7 mmol/L (3.5-5.1); PROTEIN - SERUM 6.4 g/dL (6.4-8.2); SODIUM 139 mmol/L (136-145); eGFR NON AFRICAN AMERICAN > 90 mL/min (90-120)
[2021-01-20 07:35] LABS: UREA NITROGEN 4 mg/dL (7-18)
--- NOTE | 2021-01-20 07:43 | NUR ---
REC'D CALL FROM LAB WITH RESULTS OF WBC OF 1.8. Angella LITTLEJOHN BISTRO SERVER WAS NOTIFIED NO NEW ORDERS AT THIS TIME.
[2021-01-20 09:09] VITALS: BP 103/52
[2021-01-20 13:30] VITALS: BP 132/72
--- NOTE | 2021-01-20 14:34 | NUR ---
Nutrition follow-up: Pt discussed during IDT team rounds. Diet just advanced to regular as tolerated today Labs reviewed Pt reports not feeling well today Lactulose increased due to NH3 elevated Wt: 168# Will provide food choices with selective menus and honor food preferences. Will offer nutritional supplements. RDN will follow-up on pts progress toward nutrition goals in 3-5 days.
--- NOTE | 2021-01-20 14:51 | NUR ---
I have reviewed this patient and I concur with the Shift Assessment completed by the Licensed Practical Nurse today this shift.
[2021-01-20 17:46] VITALS: BP 124/75
[2021-01-20 20:00] VITALS: BP 125/67
[2021-01-21] VITALS: BP 119/62
[2021-01-21 04:00] VITALS: BP 115/65
[2021-01-21 06:02] LABS: BASOPHILS 0.3 % (0-2); EOSINOPHILS 0.8 % (0-7); HEMATOCRIT 28.7 % (36.0-48.0); HEMOGLOBIN 9.5 g/dL (12-16); LYMPHOCYTES 23.3 % (15-50); MCH 33.8 pg (26.0-34.0); MCHC 33.3 g/dL (31.0-37.0); MCV 101.6 fL (80.0-100.0); MEAN PLATELET VOLUME 9.9 fL (7.4-10.4); MONOCYTES 15.6 % (2-11); RBC 2.82 10x6/uL (4.00-5.40); RDW 23.8 % (11.5-14.5)
[2021-01-21 06:11] LABS: INR 2.46 (0.85-1.17); PROTIME 24.8 SECONDS (11.6-15.0)
[2021-01-21 06:26] LABS: WBC 1.5 10x3/uL (4.8-10.8)
[2021-01-21 06:27] LABS: PLATELET COUNT 45 10x3/uL (130-400)
[2021-01-21 06:41] LABS: ALBUMIN 2.1 g/dL (3.4-5.0); ALKALINE PHOSPHATASE 110 U/L (30-120); ALT (SGPT) 46 U/L (10-68); BILIRUBIN - TOTAL 4.06 mg/dL (0.2-1.3); CALC OSMOLALITY 274 mosm/kg (275-300); CALCIUM 7.7 mg/dL (8.5-10.1); CARBON DIOXIDE 24.3 mmol/L (21.0-32.0); CHLORIDE - SERUM 106 mmol/L (98-107); CREATININE - SERUM 0.5 mg/dL (0.6-1.3); GLUCOSE 103 mg/dL (74-106); POTASSIUM - SERUM 3.6 mmol/L (3.5-5.1); PROTEIN - SERUM 6.3 g/dL (6.4-8.2); SODIUM 139 mmol/L (136-145); UREA NITROGEN 3 mg/dL (7-18)
[2021-01-21 06:42] LABS: eGFR NON AFRICAN AMERICAN > 90 mL/min (90-120)
--- NOTE | 2021-01-21 08:01 | NUR ---
RESTING IN BED WITH EYES CLOSED, EASILY AROUSED TO SPEECH. IV LOCATED TO RIGHT FA CURRENTLY SL. NO CURRENT S/S OF DISTRESS AT THIS TIME, DENIES CURRENT NEEDS, WILL CONT TO MONITOR.
[2021-01-21 08:23] LABS: % SATURATION 27 % (15-55); IRON 33 ug/dl (35-150); TOTAL IRON BIND CAPACITY 120 ug/dl (260-445); UNSAT IRON BIND CAPACITY 87 ug/dl (150-375)
[2021-01-21 08:51] LABS: FERRITIN 199 ng/mL (3-244); LDH 271 U/L (81-234)
[2021-01-21 09:07] VITALS: BP 100/52
[2021-01-21 12:42] VITALS: BP 105/52
[2021-01-21 17:08] VITALS: BP 119/63
[2021-01-21 20:00] VITALS: BP 129/73
--- NOTE | 2021-01-22 01:55 | NUR ---
2000) REC'D WALKING ROUNDS CHGE OF SHIFT IN SHOWER.DENIES ANY COMPLAINTS AT PRESENT TIME WILL CONTINUE TO MONITOR AND FOLLOW CURRENT PLAN OF CARE
[2021-01-22 04:00] VITALS: BP 121/67
[2021-01-22 06:20] LABS: HEMATOCRIT 29.3 % (36.0-48.0); HEMOGLOBIN 9.7 g/dL (12-16); MCH 33.9 pg (26.0-34.0); MCHC 33.1 g/dL (31.0-37.0); MCV 102.4 fL (80.0-100.0); MEAN PLATELET VOLUME 10.4 fL (7.4-10.4); RBC 2.86 10x6/uL (4.00-5.40); RDW 23.3 % (11.5-14.5)
--- NOTE | 2021-01-22 06:23 | NUR ---
I have reviewed this patient and I concur with the Shift Assessment completed by the Licensed Practical Nurse today this shift.
[2021-01-22 06:26] LABS: PLATELET COUNT 58 10x3/uL (130-400); WBC 2.3 10x3/uL (4.8-10.8)
[2021-01-22 06:43] LABS: ALBUMIN 2.1 g/dL (3.4-5.0); ALKALINE PHOSPHATASE 100 U/L (30-120); ALT (SGPT) 49 U/L (10-68); BILIRUBIN - TOTAL 3.59 mg/dL (0.2-1.3); CALC OSMOLALITY 277 mosm/kg (275-300); CALCIUM 7.8 mg/dL (8.5-10.1); CARBON DIOXIDE 25.1 mmol/L (21.0-32.0); CHLORIDE - SERUM 107 mmol/L (98-107); CREATININE - SERUM 0.6 mg/dL (0.6-1.3); GLUCOSE 119 mg/dL (74-106); POTASSIUM - SERUM 3.4 mmol/L (3.5-5.1); PROTEIN - SERUM 6.5 g/dL (6.4-8.2); SODIUM 140 mmol/L (136-145); eGFR NON AFRICAN AMERICAN > 90 mL/min (90-120)
[2021-01-22 06:44] LABS: UREA NITROGEN 6 mg/dL (7-18)
--- NOTE | 2021-01-22 07:55 | NUR ---
0700 BEDSIDE REPORT RECEIVED AWAKE ALERT SITTING UP IN BED WITH NO COMPLAINTS
[2021-01-22 08:06] VITALS: BP 124/77
[2021-01-22 12:36] VITALS: BP 123/77
[2021-01-22 13:34] LABS: EOSINOPHILS 2 % (0-7); LYMPHOCYTES 11 % (15-50); MONOCYTES 9 % (2-11); NEUTROPHILS 77 % (40-80)
[2021-01-22 13:35] LABS: PLATELET ESTIMATE DECREASED
[2021-01-22 16:18] VITALS: BP 112/77
[2021-01-22 20:00] VITALS: BP 127/74
[2021-01-23] VITALS: BP 100/58
[2021-01-23 04:00] VITALS: BP 119/74
[2021-01-23 06:27] LABS: BASOPHILS 0.5 % (0-2); EOSINOPHILS 1.1 % (0-7); HEMATOCRIT 29.7 % (36.0-48.0); HEMOGLOBIN 9.8 g/dL (12-16); LYMPHOCYTES 16.4 % (15-50); MCH 33.9 pg (26.0-34.0); MCHC 33.1 g/dL (31.0-37.0); MCV 102.4 fL (80.0-100.0); MONOCYTES 15.9 % (2-11); NEUTROPHILS 66.1 % (40-80); PLATELET COUNT 65 10x3/uL (130-400); RDW 23.8 % (11.5-14.5)
[2021-01-23 06:31] LABS: WBC 3.4 10x3/uL (4.8-10.8)
[2021-01-23 07:05] LABS: ALBUMIN 2.1 g/dL (3.4-5.0); ALKALINE PHOSPHATASE 102 U/L (30-120); ALT (SGPT) 57 U/L (10-68); BILIRUBIN - TOTAL 3.55 mg/dL (0.2-1.3); CALC OSMOLALITY 274 mosm/kg (275-300); CALCIUM 8.3 mg/dL (8.5-10.1); CARBON DIOXIDE 25.9 mmol/L (21.0-32.0); CHLORIDE - SERUM 106 mmol/L (98-107); CREATININE - SERUM 0.7 mg/dL (0.6-1.3); GLUCOSE 100 mg/dL (74-106); POTASSIUM - SERUM 3.6 mmol/L (3.5-5.1); PROTEIN - SERUM 6.4 g/dL (6.4-8.2); SODIUM 139 mmol/L (136-145); eGFR NON AFRICAN AMERICAN > 90 mL/min (90-120)
[2021-01-23 07:09] LABS: UREA NITROGEN 4 mg/dL (7-18)
[2021-01-23 08:41] VITALS: BP 126/75
[2021-01-23 13:42] VITALS: BP 98/55
[2021-01-23 17:04] VITALS: BP 121/61
[2021-01-23 20:00] VITALS: BP 127/65
--- NOTE | 2021-01-23 20:00 | NUR ---
RECIEVED BEDSIDE REPORT. SITTING UP IN BED NO NOTED DISTRESS NO C/O PAIN. AWAKE AND LETHARGIC & ORIENTED X 4. PIV TO RIGHT HAND, PATENT DRESSING CHANGED, INFUSING. EDUCATION PROVIDED AND ENCOURAGED FOR I/S. GOAL SET AT 1000 REACHED X 2. EDUCATED CALL LIGHT AND NEEDS. CALL LIGHT IN REACH BED LOCKED IN LOW POSITION.
[2021-01-24 04:00] VITALS: BP 106/65
[2021-01-24 05:34] LABS: HEMOGLOBIN 9.8 g/dL (12-16)
[2021-01-24 05:36] LABS: HEMATOCRIT 29.2 % (36.0-48.0); MCH 34.3 pg (26.0-34.0); MCHC 33.6 g/dL (31.0-37.0); MCV 102.1 fL (80.0-100.0); MEAN PLATELET VOLUME 10.6 fL (7.4-10.4); PLATELET COUNT 62 10x3/uL (130-400); RBC 2.86 10x6/uL (4.00-5.40); RDW 23.6 % (11.5-14.5)
[2021-01-24 05:44] LABS: WBC 2.5 10x3/uL (4.8-10.8)
[2021-01-24 06:25] LABS: ALBUMIN 2.1 g/dL (3.4-5.0); ALKALINE PHOSPHATASE 100 U/L (30-120); ALT (SGPT) 57 U/L (10-68); BILIRUBIN - TOTAL 3.57 mg/dL (0.2-1.3); CALC OSMOLALITY 276 mosm/kg (275-300); CALCIUM 7.6 mg/dL (8.5-10.1); CARBON DIOXIDE 24.9 mmol/L (21.0-32.0); CHLORIDE - SERUM 108 mmol/L (98-107); GLUCOSE 110 mg/dL (74-106); POTASSIUM - SERUM 3.6 mmol/L (3.5-5.1); PROTEIN - SERUM 6.3 g/dL (6.4-8.2); SODIUM 140 mmol/L (136-145); UREA NITROGEN 3 mg/dL (7-18)
[2021-01-24 06:31] LABS: CREATININE - SERUM 0.5 mg/dL (0.6-1.3); eGFR NON AFRICAN AMERICAN > 90 mL/min (90-120)
[2021-01-24 09:41] VITALS: BP 121/64
[2021-01-24 10:20] LABS: ANISOCYTOSIS OCC; LYMPHOCYTES 14 % (15-50); MONOCYTES 10 % (2-11); NEUTROPHILS 76 % (40-80); PLATELET ESTIMATE DECREASED
[2021-01-24 12:07] VITALS: BP 106/55
--- NOTE | 2021-01-24 14:02 | NUR ---
Nutrition reassessment: Initial assessment: 01/16/21 Dx: Cirrhosis Diet order: regular PO Intake ~50% of meals Labs reviewed Wt: 223# Multiple BM's due to Lactulose Pt sleeping at time of RD visit; has been with some confusion per nurse Estimated needs, nutrition diagnosis, goals, interventions remain the same as initial assessment on 01/16/21 Recommend: HS snacks of turkey sandwich to prevent overnight starvation due to liver disease. RDN will follow-up on pts progress in 3-5 days.
[2021-01-24 21:05] VITALS: BP 126/74
[2021-01-25 00:16] VITALS: BP 120/70
[2021-01-25 04:25] VITALS: BP 118/72
[2021-01-25 06:31] LABS: INR 2.62 (0.85-1.17)
[2021-01-25 06:38] LABS: ALKALINE PHOSPHATASE 98 U/L (30-120); ALT (SGPT) 60 U/L (10-68); CALC OSMOLALITY 274 mosm/kg (275-300); CALCIUM 7.8 mg/dL (8.5-10.1); CARBON DIOXIDE 23.6 mmol/L (21.0-32.0); CHLORIDE - SERUM 109 mmol/L (98-107); CREATININE - SERUM 0.6 mg/dL (0.6-1.3); GLUCOSE 103 mg/dL (74-106); MAGNESIUM - SERUM 1.8 mg/dL (1.8-2.4); POTASSIUM - SERUM 3.3 mmol/L (3.5-5.1); PROTEIN - SERUM 6.1 g/dL (6.4-8.2); SODIUM 139 mmol/L (136-145); UREA NITROGEN 4 mg/dL (7-18); eGFR NON AFRICAN AMERICAN > 90 mL/min (90-120)
[2021-01-25 06:50] LABS: HEMOGLOBIN 9.7 g/dL (12-16); MONOCYTES 10.4 % (2-11); RBC 2.86 10x6/uL (4.00-5.40)
[2021-01-25 06:52] LABS: BASOPHILS 0.3 % (0-2); HEMATOCRIT 29.5 % (36.0-48.0); LYMPHOCYTES 12.8 % (15-50); MCV 103.1 fL (80.0-100.0); MEAN PLATELET VOLUME 9.7 fL (7.4-10.4); NEUTROPHILS 75.5 % (40-80); PLATELET COUNT 61 10x3/uL (130-400); RDW 23.5 % (11.5-14.5)
--- NOTE | 2021-01-25 07:30 | NUR ---
AWAKE AND ALERT. ORIENTED X3. NO C/O AT THIS TIME. LUNGS ARE CLEAR BILATERALLY, NO COUGH NOTED. SKIN IS INTACT WITHOUT REDNESS. SL TO RIGHT HAND IS PATENT WITHOUT REDNESS AT INSERTION SITE. DENIES NEEDS.
[2021-01-25 08:20] VITALS: BP 116/62
--- NOTE | 2021-01-25 09:15 | NUR ---
ATE MOST OF BREAKFAST. TOOK AM MEDS WITHOUT DIFFICULTY. DENIES NEEDS.
--- NOTE | 2021-01-25 12:30 | NUR ---
LUNCH SERVED IN ROOM. REFUSED TO EAT. FAMILY BROUGHT IN FOOD FROM OUTSIDE AND PATIENT STILL DIDN'T EAT. WILL MONITOR.
[2021-01-25 13:22] VITALS: BP 121/59
--- NOTE | 2021-01-25 15:00 | NUR ---
RESTING QUIETLY IN BED WITH EYES CLOSED. NO NEEDS NOTED.
--- NOTE | 2021-01-25 19:53 | NUR ---
PATIENT RESTING IN BED WITH NO S/S OF DISTRESS AND DENIES NEEDS AT THIS TIME. BED IN LOWEST POSITION AND CALL LIGHT IN REACH. ENCOURAGED PATIENT TO CALL WITH NEEDS.
--- NOTE | 2021-01-25 19:55 | NUR ---
REFUSED TO EAT SUPPER. DENIES NEEDS. NO CHANGES NOTED. REPORTED MULTIPLE BM'S AFTER LACTULOSE DOSES.
[2021-01-25 20:00] VITALS: BP 118/71
--- NOTE | 2021-01-25 21:24 | NUR ---
ADMINISTERED MEDS PER ORDERS. PATIENT DALILA WELL. ENCOURAGED PATIENT TO CALL WITH NEEDS.
[2021-01-26] VITALS: BP 111/71
[2021-01-26 04:00] VITALS: BP 117/68
[2021-01-26 06:17] LABS: HEMATOCRIT 29.6 % (36.0-48.0); HEMOGLOBIN 9.8 g/dL (12-16); MCH 34.2 pg (26.0-34.0); MCHC 33.2 g/dL (31.0-37.0); MCV 102.9 fL (80.0-100.0); MEAN PLATELET VOLUME 10.3 fL (7.4-10.4); PLATELET COUNT 61 10x3/uL (130-400); RBC 2.88 10x6/uL (4.00-5.40); RDW 22.6 % (11.5-14.5)
[2021-01-26 06:29] LABS: WBC 4.9 10x3/uL (4.8-10.8)
[2021-01-26 07:18] LABS: INR 2.68 (0.85-1.17); PROTIME 26.5 SECONDS (11.6-15.0)
[2021-01-26 07:22] LABS: LYMPHOCYTES 10 % (15-50); MONOCYTES 2 % (2-11); NEUTROPHILS 88 % (40-80); PLATELET ESTIMATE DECREASED
[2021-01-26 07:31] LABS: ALBUMIN 2.1 g/dL (3.4-5.0); ALKALINE PHOSPHATASE 102 U/L (30-120); ALT (SGPT) 66 U/L (10-68); BILIRUBIN - TOTAL 3.82 mg/dL (0.2-1.3); CALC OSMOLALITY 275 mosm/kg (275-300); CALCIUM 7.6 mg/dL (8.5-10.1); CARBON DIOXIDE 22.5 mmol/L (21.0-32.0); CHLORIDE - SERUM 109 mmol/L (98-107); CREATININE - SERUM 0.6 mg/dL (0.6-1.3); GLUCOSE 104 mg/dL (74-106); MAGNESIUM - SERUM 2.1 mg/dL (1.8-2.4); PHOSPHOROUS 3.3 mg/dL (2.5-4.9); POTASSIUM - SERUM 3.6 mmol/L (3.5-5.1); PROTEIN - SERUM 6.4 g/dL (6.4-8.2); SODIUM 140 mmol/L (136-145); UREA NITROGEN 3 mg/dL (7-18); eGFR NON AFRICAN AMERICAN > 90 mL/min (90-120)
[2021-01-26 08:27] VITALS: BP 121/64
--- NOTE | 2021-01-26 10:00 | NUR ---
ASSESSMENT PER FLOW SHEET. PATIENT IS WITHOUT DISTRESS. TINA MAT FOR FALL PREVENTION. MONITOR FOR NEEDS
--- NOTE | 2021-01-26 12:07 | NUR ---
REHAB PRESCREEN RECEIVED. I HAVE STARTED A CHART REVIEW, BUT HER PHYSICAL THERAPY IS STILL PENDING. ONCE THIS IS RECEIVED, I WILL SEE IF SHE MEETS INPATIENT REHAB CRITERIA AND SUBMIT FOR AUTH WITH HER MANAGED MEDICAID TOMORROW. THANK YOU FOR THIS REFERRAL. MICHAEL OQUENDO CLINICAL LIAISON, INPATIENT REHAB.
[2021-01-26 13:02] VITALS: BP 125/74
[2021-01-26 17:27] VITALS: BP 113/61
[2021-01-26 20:00] VITALS: BP 126/72
--- NOTE | 2021-01-26 20:30 | NUR ---
PATIENT C/O OF PAIN AT IV SITE. PATIENT'S IV PARTIALLY OUT, RED, AND SWOLLEN AT IV SITE. REMOVED PIV TO RIGHT HAND, TIP INTACT. ADMINISTERED MEDS PER ORDERS PATIENT DENIES OTHER NEEDS AT THIS TIME. BED IN LOWEST POSITION, CALL LIGHT IN REACH, BED ALARM ON. ENCOURAGED PATIENT TO CALL WITH NEEDS.
--- NOTE | 2021-01-26 21:24 | NUR ---
KENJI ELI RESITED PATIENT'S IV TO HER RIGHT WRIST ON THE FIRST ATTEMPT.
[2021-01-27] VITALS: BP 120/63
[2021-01-27 04:00] VITALS: BP 135/55; BP 89/58
[2021-01-27 06:05] LABS: MEAN PLATELET VOLUME 10.3 fL (7.4-10.4)
[2021-01-27 06:09] LABS: BASOPHILS 1.3 % (0-2); HEMATOCRIT 30.6 % (36.0-48.0); LYMPHOCYTES 14.3 % (15-50); MCH 33.7 pg (26.0-34.0); MCHC 32.8 g/dL (31.0-37.0); MCV 102.9 fL (80.0-100.0); MONOCYTES 9.2 % (2-11); NEUTROPHILS 74.2 % (40-80); PLATELET COUNT 53 10x3/uL (130-400); RBC 2.98 10x6/uL (4.00-5.40); RDW 23.2 % (11.5-14.5)
[2021-01-27 06:18] LABS: WBC 3.1 10x3/uL (4.8-10.8)
[2021-01-27 06:31] LABS: INR 2.81 (0.85-1.17); PROTIME 27.5 SECONDS (11.6-15.0)
[2021-01-27 06:46] LABS: ALBUMIN 1.9 g/dL (3.4-5.0); ALKALINE PHOSPHATASE 92 U/L (30-120); ALT (SGPT) 74 U/L (10-68); BILIRUBIN - TOTAL 3.55 mg/dL (0.2-1.3); CALC OSMOLALITY 277 mosm/kg (275-300); CALCIUM 7.5 mg/dL (8.5-10.1); CARBON DIOXIDE 24.9 mmol/L (21.0-32.0); CHLORIDE - SERUM 110 mmol/L (98-107); CREATININE - SERUM 0.6 mg/dL (0.6-1.3); GLUCOSE 96 mg/dL (74-106); PHOSPHOROUS 3.6 mg/dL (2.5-4.9); POTASSIUM - SERUM 3.5 mmol/L (3.5-5.1); PROTEIN - SERUM 5.9 g/dL (6.4-8.2); SODIUM 141 mmol/L (136-145); UREA NITROGEN 4 mg/dL (7-18); eGFR NON AFRICAN AMERICAN > 90 mL/min (90-120)
--- NOTE | 2021-01-27 07:30 | NUR ---
PT ASLEEP ON RIGHT SIDE. EASILY AWAKENED. CL IN REACH. STATES PAIN LEVEL IS A 7 OUT OF 10 ON THE PAIN SCALE. WCTM
[2021-01-27 09:25] VITALS: BP 116/61
--- NOTE | 2021-01-27 10:21 | NUR ---
PT REQUESTED AND RECIEVED APPLE JUICE. CL IN REACH. NO NEEDS AT THIS TIME. WCTM
[2021-01-27 12:45] VITALS: BP 126/71
--- NOTE | 2021-01-27 13:58 | NUR ---
PATIENT HAS BEEN APPROVED FOR INPATIENT REHAB WITH AUTH # [id number]. WE WILL TAKE HER TODAY IF SHE IS STILL WILLING AND THE PHYSICIAN FEELS SHE IS STABLE ENOUGH TO COME. AGAIN, THANK YOU FOR THIS REFERRAL. Cata IBRAHIM RN CLINICAL LIAISON, INPATIENT REHAB.
--- NOTE | 2021-01-27 14:45 | MORECARE ---
CASE MANAGEMENT DISCHARGE SUMMARY PATIENT: STEFANO XIONG UNIT: [id number] ADM DATE: 01/15/21 AGE: 30 : 86 SEX: F ROOM/BED: D.2234 AUTHOR: THOMPSON,DOC PHYSICIAN: REFERRING PHYSICIAN: LORENZO RUTHERFORD MD DATE OF SERVICE: 01/27/21 Case Management Discharge Planning Summary COMMENTS ENTERED DATE: 01/27/21 14:41 CT COMMENT TYPE: Discharge Planning REVIEWER: Italia Karly INSURANCE HAS APPROVED HER FOR INPATIENT REHAB AT [facility]. WHEN PATIENT IS MEDICALLY STABLE SHE CAN ADMIT TO REHAB. I TALKED WITH PATIENT TODAY AND SHE IS AGREEABLE TO GO TO INPATIENT REHAB [facility]. PATIENT SISTER IS AT BEDSIDE AT THIS TIME. ENTERED DATE: 01/21/21 13:21 CT COMMENT TYPE: Discharge Planning REVIEWER: Ange Zelaya PATIENT'S IN-NETWORK PROVIDERS FOR RECOVERY SERVICES; [facility] AND [facility] OFFER RESIDENTIAL AND OUTPATIENT SERVICES. TME INFORMATION WAS SHARED W/ THE PATIENT PER THE BEAUTY SALES CONSULTANT. ENTERED DATE: 01/21/21 11:53 CT COMMENT TYPE: Discharge Planning REVIEWER: Ange Zelaya CM RECEIVED TELEPHONE CALL FROM AKIL LR, BEAUTY SALES CONSULTANT, CALLED FOR CLINICAL UPDATE. SHE HAS BEEN FOLLOWING THIS PATIENT AND WITH PREVIOUS ADMITS. CONTA[place] NUM[place] EXT [id number] FAX # [phone]. PLS TO FAX DISCHARGE INFORMATION WHEN SRAVANI GUERRIER CHURCH SUPERVISOR WITH NEW DIRECTIONS, CAN BE CONTACTED FOR BEHAVIORAL HEALTH SERVICES AT [phone]. DCP REVIEW SUMMARY ANTICIPATED D/C DATE: EXPECTED LOS : CASE STATUS: DCP Initiated INITIAL REVIEW: 01/15/2021 INITIAL REVIEWER: Italia Brandt FINAL DISCHARGE DISPOSITION: : FINAL REVIEWER: FINAL REVIEW DATE: DCP Focus Questions & Answers DCP Screen QUESTION: ANSWER High Risk Factors: : Poor health literacy DCP Evaluation QUESTION: ANSWER Patient's ability to cope with chronic illness : d. No chronic illness Would patient like to participate in any Care Coordination programs (if applicable): : Not applicable Mental health screen: : No mental health history DCP Re-evaluation QUESTION: ANSWER Would patient like to participate in any Care Coordination programs (if applicable): : Not applicable PATIENT: SETFANO XIONG ENCOUNTER: [id number] MEDICAL RECORD#: [id number] ADMISSION DATE: 01/15/2021 DISCHARGE DATE: ATTENDING MD: LORENZO SEBASTIAN : AGE: 30 MARITAL STATUS: S DC PLAN ID: [id number] FACILITY: [facility] PRINTED ON: 01/27/21 14:44 CT All edits/amendments must be made on the electronic document DICTATION DATE: 01/27/211443 STATION BAGGAGE PORTER: PARVIN 01/27/21 1444 RPT#: [id number] DC DATE: STATUS: ADM IN [facility] [address] [place] [address] END OF REPORT
[2021-01-27 15:46] VITALS: BP 125/70
--- NOTE | 2021-01-27 15:55 | NUR ---
PT STATES TREMORS HAVE GOTTEN BETTER SINCE IV ATIVAN. CL IN REACH. POSSE ALARM ON. WCTM
[2021-01-27 20:00] VITALS: BP 117/57
[2021-01-28 04:00] VITALS: BP 116/64
[2021-01-28 06:59] LABS: INR 2.69 (0.85-1.17); PROTIME 26.6 SECONDS (11.6-15.0)
[2021-01-28 07:04] LABS: ALKALINE PHOSPHATASE 97 U/L (30-120); ALT (SGPT) 69 U/L (10-68); BILIRUBIN - TOTAL 3.07 mg/dL (0.2-1.3); CALC OSMOLALITY 278 mosm/kg (275-300); CALCIUM 7.6 mg/dL (8.5-10.1); CARBON DIOXIDE 28.8 mmol/L (21.0-32.0); CHLORIDE - SERUM 109 mmol/L (98-107); CREATININE - SERUM 0.6 mg/dL (0.6-1.3); GLUCOSE 84 mg/dL (74-106); MAGNESIUM - SERUM 1.9 mg/dL (1.8-2.4); PHOSPHOROUS 3.6 mg/dL (2.5-4.9); POTASSIUM - SERUM 3.5 mmol/L (3.5-5.1); PROTEIN - SERUM 5.9 g/dL (6.4-8.2); SODIUM 142 mmol/L (136-145); UREA NITROGEN 3 mg/dL (7-18); eGFR NON AFRICAN AMERICAN > 90 mL/min (90-120)
[2021-01-28 07:06] LABS: HEMOGLOBIN 10.2 g/dL (12-16); WBC 2.6 10x3/uL (4.8-10.8)
[2021-01-28 07:08] LABS: HEMATOCRIT 30.3 % (36.0-48.0); MCHC 33.5 g/dL (31.0-37.0); MCV 101.5 fL (80.0-100.0); PLATELET COUNT 55 10x3/uL (130-400); RBC 2.99 10x6/uL (4.00-5.40); RDW 23.1 % (11.5-14.5)
--- NOTE | 2021-01-28 07:47 | NUR ---
ALERT AND ORIENTED. ASSESSMENT COMPLETE. DENIES NEEDS. BED LOW. CALL CAMPA AND PERSONAL ITEMS IN REACH. WILL CONTINUE TO MONITOR.
[2021-01-28 09:03] VITALS: BP 115/73
--- NOTE | 2021-01-28 12:34 | NUR ---
Nutrition follow-up: Diet order: Regular; HS snack every evening PO intake ~60% average of meals Labs reviewed Wt: 222# +BM, multiple due to lactulose PO intake is improving. Will continue to provide food choices and honor food preferences. Will offer nutritional supplements; HS snack RDN will follow-up on pts progress in 3-5 days.
[2021-01-28 12:50] VITALS: BP 111/59
[2021-01-28 14:08] LABS: EOSINOPHILS 1 % (0-7); LYMPHOCYTES 21 % (15-50); MONOCYTES 6 % (2-11); NEUTROPHILS 71 % (40-80)
[2021-01-28 14:09] LABS: PLATELET ESTIMATE DECREASED
--- NOTE | 2021-01-28 15:25 | NUR ---
OT NOTE: PT COMPLETED SUPINE TO SIT WITH CGA. PT COMPLETED TOILET ADL MOB WITH CGA. PT COMPLETED TOILETING WITH SBA. PT REQUIRED MOD A FOR TOILET HYGIENE. PT COMPLETED HAND HYGIENE WITH SETUP. PT COMPLETED BED POSITIONING WITH MIN A. [phone] JAMAR WETZEL COTA
[2021-01-28 17:21] VITALS: BP 119/78
[2021-01-28 20:00] VITALS: BP 114/59
[2021-01-29] VITALS: BP 120/66
--- NOTE | 2021-01-29 01:02 | NUR ---
I have reviewed this patient and I concur with the Shift Assessment completed by the Licensed Practical Nurse today this shift.
[2021-01-29 04:00] VITALS: BP 124/60
[2021-01-29 06:07] LABS: INR 2.56 (0.85-1.17); PROTIME 25.6 SECONDS (11.6-15.0)
[2021-01-29 06:22] LABS: RBC 2.87 10x6/uL (4.00-5.40)
[2021-01-29 06:25] LABS: BASOPHILS 0.7 % (0-2); EOSINOPHILS 1.6 % (0-7); HEMATOCRIT 29.2 % (36.0-48.0); HEMOGLOBIN 9.7 g/dL (12-16); LYMPHOCYTES 20.5 % (15-50); MCH 33.9 pg (26.0-34.0); MCHC 33.2 g/dL (31.0-37.0); MEAN PLATELET VOLUME 10.6 fL (7.4-10.4); MONOCYTES 11.6 % (2-11); NEUTROPHILS 65.6 % (40-80); PLATELET COUNT 50 10x3/uL (130-400)
[2021-01-29 06:33] LABS: ALBUMIN 1.9 g/dL (3.4-5.0); ALKALINE PHOSPHATASE 84 U/L (30-120); ALT (SGPT) 69 U/L (10-68); BILIRUBIN - TOTAL 3.06 mg/dL (0.2-1.3); CALC OSMOLALITY 277 mosm/kg (275-300); CALCIUM 7.5 mg/dL (8.5-10.1); CARBON DIOXIDE 27.1 mmol/L (21.0-32.0); CHLORIDE - SERUM 108 mmol/L (98-107); CREATININE - SERUM 0.5 mg/dL (0.6-1.3); GLUCOSE 90 mg/dL (74-106); MAGNESIUM - SERUM 1.9 mg/dL (1.8-2.4); PHOSPHOROUS 3.9 mg/dL (2.5-4.9); POTASSIUM - SERUM 3.6 mmol/L (3.5-5.1); PROTEIN - SERUM 5.7 g/dL (6.4-8.2); SODIUM 141 mmol/L (136-145); eGFR NON AFRICAN AMERICAN > 90 mL/min (90-120)
[2021-01-29 06:34] LABS: UREA NITROGEN 5 mg/dL (7-18)
[2021-01-29 07:57] VITALS: BP 121/62
[2021-01-29] MEDS ORDERED: XIFAXAN550 MG PO (11:31)
[2021-01-29] MEDS ORDERED: ATIVAN IV (11:32)
[2021-01-29] MEDS ORDERED: QUESTRAN LIG1 PACKET PO (11:32)
[2021-01-29] MEDS ORDERED: ROCEPHIN 1 GM/D51 G1 IV (11:32)
[2021-01-29] MEDS ORDERED: CHRONULAC30 ML PO (11:32)
[2021-01-29] MEDS ORDERED: PROTONIX40 MG PO (11:33)
[2021-01-29] MEDS ORDERED: PREDNISONE20 MG PO (11:33)
[2021-01-29] MEDS ORDERED: FLORAJEN DIGES1 EACH PO (11:33)
[2021-01-29] MEDS ORDERED: K-DUR20 MEQ PO (11:33)
[2021-01-29 12:06] VITALS: BP 125/63
--- NOTE | 2021-01-29 14:15 | NUR ---
REPORT CALLED TO DESHAWN IN REHAB AT THIS TIME. PATIENT BELONGINGS PACKED INTO PATIENT BELONGING BAGS AND PAPERWORK SIGNED. NO QUESTIONS AT THIS TIME. WILL TRANSFER PATIENT TO REHAB VIA WC WITH PERSONAL BELONGINGS.
--- NOTE | 2021-01-29 14:47 | MORECARE ---
CASE MANAGEMENT DISCHARGE SUMMARY PATIENT: STEFANO XIONG UNIT: [id number] ADM DATE: 01/15/21 AGE: 30 : 86 SEX: F ROOM/BED: D.2239 AUTHOR: THOMPSON,DOC PHYSICIAN: REFERRING PHYSICIAN: LORENZO RUTHERFORD MD DATE OF SERVICE: 01/29/21 Case Management Discharge Planning Summary COMMENTS ENTERED DATE: 01/27/21 14:41 CT COMMENT TYPE: Discharge Planning REVIEWER: Italia Karly INSURANCE HAS APPROVED HER FOR INPATIENT REHAB AT [facility]. WHEN PATIENT IS MEDICALLY STABLE SHE CAN ADMIT TO REHAB. I TALKED WITH PATIENT TODAY AND SHE IS AGREEABLE TO GO TO INPATIENT REHAB [facility]. PATIENT SISTER IS AT BEDSIDE AT THIS TIME. ENTERED DATE: 01/21/21 13:21 CT COMMENT TYPE: Discharge Planning REVIEWER: Ange Zelaya PATIENT'S IN-NETWORK PROVIDERS FOR RECOVERY SERVICES; [facility] AND [facility] OFFER RESIDENTIAL AND OUTPATIENT SERVICES. TME INFORMATION WAS SHARED W/ THE PATIENT PER THE INSURANCE BILLING CLERK. ENTERED DATE: 01/21/21 11:53 CT COMMENT TYPE: Discharge Planning REVIEWER: Ange Zelaya CM RECEIVED TELEPHONE CALL FROM AKIL LR, INSURANCE BILLING CLERK, CALLED FOR CLINICAL UPDATE. SHE HAS BEEN FOLLOWING THIS PATIENT AND WITH PREVIOUS ADMITS. CONTACT PHONE NUMBER EXT [phone] FAX # [phone]. 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 DCP REVIEW SUMMARY ANTICIPATED D/C DATE: EXPECTED LOS : CASE STATUS: DCP Initiated INITIAL REVIEW: 01/15/2021 INITIAL REVIEWER: Italia Brandt FINAL DISCHARGE DISPOSITION: : FINAL REVIEWER: FINAL REVIEW DATE: DCP Focus Questions & Answers DCP Screen QUESTION: ANSWER High Risk Factors: : Poor health literacy DCP Evaluation QUESTION: ANSWER Patient's ability to cope with chronic illness : d. No chronic illness Would patient like to participate in any Care Coordination programs (if applicable): : Not applicable Mental health screen: : No mental health history DCP Re-evaluation QUESTION: ANSWER Would patient like to participate in any Care Coordination programs (if applicable): : Not applicable PATIENT: STEFANO XIONG ENCOUNTER: [id number] MEDICAL RECORD#: [id number] ADMISSION DATE: 01/15/2021 DISCHARGE DATE: 01/29/2021 ATTENDING MD: LORENZO SEBASTIAN : AGE: 30 MARITAL STATUS: S DC PLAN ID: [id number] FACILITY: [facility] PRINTED ON: 01/29/21 14:47 CT All edits/amendments must be made on the electronic document DICTATION DATE: 01/29/211446 CORONER: PARVIN 01/29/211446 RPT#: [id number] DC DATE:01/29/21 STATUS: DIS IN [facility] [address] [place] [address] END OF REPORT
--- NOTE | 2021-01-30 07:56 | MORECARE ---
CASE MANAGEMENT DISCHARGE SUMMARY PATIENT: STEFANO XIONG UNIT: [id number] ADM DATE: 01/15/21 AGE: 30 : 86 SEX: F ROOM/BED: D.2239 AUTHOR: THOMPSON,DOC PHYSICIAN: REFERRING PHYSICIAN: LORENZO RUTHERFORD MD DATE OF SERVICE: 01/30/21 Case Management Discharge Planning Summary COMMENTS ENTERED DATE: 01/27/21 14:41 CT COMMENT TYPE: Discharge Planning REVIEWER: Italia Karly INSURANCE HAS APPROVED HER FOR INPATIENT REHAB AT [facility]. WHEN PATIENT IS MEDICALLY STABLE SHE CAN ADMIT TO REHAB. I TALKED WITH PATIENT TODAY AND SHE IS AGREEABLE TO GO TO INPATIENT REHAB [facility]. PATIENT SISTER IS AT BEDSIDE AT THIS TIME. ENTERED DATE: 01/21/21 13:21 CT COMMENT TYPE: Discharge Planning REVIEWER: Ange Zelaya PATIENT'S IN-NETWORK PROVIDERS FOR RECOVERY SERVICES; [facility] AND [facility] OFFER RESIDENTIAL AND OUTPATIENT SERVICES. TME INFORMATION WAS SHARED W/ THE PATIENT PER THE ARTIFICIAL BREEDING TECHNICIAN. ENTERED DATE: 01/21/21 11:53 CT COMMENT TYPE: Discharge Planning REVIEWER: Ange Zelaya CM RECEIVED TELEPHONE CALL FROM AKIL LR, ARTIFICIAL BREEDING TECHNICIAN, CALLED FOR CLINICAL UPDATE. SHE HAS BEEN FOLLOWING THIS PATIENT AND WITH PREVIOUS ADMITS. CONTACT PHONE NUMBER EXT [phone] FAX # [phone]. 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 DCP REVIEW SUMMARY ANTICIPATED D/C DATE: EXPECTED LOS : CASE STATUS: DCP Initiated INITIAL REVIEW: 01/15/2021 INITIAL REVIEWER: Italia Brandt FINAL DISCHARGE DISPOSITION: : FINAL REVIEWER: FINAL REVIEW DATE: DCP Focus Questions & Answers DCP Screen QUESTION: ANSWER High Risk Factors: : Poor health literacy DCP Evaluation QUESTION: ANSWER Patient's ability to cope with chronic illness : d. No chronic illness Would patient like to participate in any Care Coordination programs (if applicable): : Not applicable Mental health screen: : No mental health history DCP Re-evaluation QUESTION: ANSWER Would patient like to participate in any Care Coordination programs (if applicable): : Not applicable PATIENT: STEFANO XIONG ENCOUNTER: [id number] MEDICAL RECORD#: [id number] ADMISSION DATE: 01/15/2021 DISCHARGE DATE: 01/29/2021 ATTENDING MD: LORENZO SEBASTIAN : AGE: 30 MARITAL STATUS: S DC PLAN ID: [id number] FACILITY: [facility] PRINTED ON: 01/30/21 7:56 CT All edits/amendments must be made on the electronic document DICTATION DATE: 01/30/21 0756 SAP BW BI DEVELOPER: PARVIN 01/30/21 0756 RPT#: [id number] DC DATE:01/29/21 STATUS: DIS IN [facility] [address] [place] [address] END OF REPORT
== END 2021-01-29 14:20 | DRG 433 ==
LOC: D.ER 14:24 → D.MS 14:51 → D.ICU 14:51 → D.MS 01-16 21:52
PROVIDERS: Family Medicine; ADMIT Emergency Medicine; ATTEND Emergency Medicine
DX: K70.31 Alcoholic cirrhosis of liver with ascites (principal); F10.231 Alcohol dependence with withdrawal delirium; D61.818 Other pancytopenia; N39.0 Urinary tract infection, site not specified; D69.6 Thrombocytopenia, unspecified; G40.909 Epilepsy, unspecified, not intractable, without status epilepticus; F32.9 Major depressive disorder, single episode, unspecified; F41.9 Anxiety disorder, unspecified; F43.10 Post-traumatic stress disorder, unspecified; E66.9 Obesity, unspecified; K70.11 Alcoholic hepatitis with ascites; E87.6 Hypokalemia; R00.0 Tachycardia, unspecified; K72.90 Hepatic failure, unspecified without coma